=== PATIENT | male | born 2000 | race Hispanic/Latino ===

== ENCOUNTER 2022-12-24 09:41 | Emergency (ER) | payer MEDICAID ==
[~2022-12-24] VITALS: Ht 177.8 cm; Wt 99.8 kg
[2022-12-24 10:00] LABS: HEMATOCRIT 53.1 % (42-54); MEAN CORPUSCULAR HEMOGLOBIN 30.7 pg (27.0-33.0); MEAN CORPUSCULAR HGB CONC 33.1 g/dL (32.0-36.0); MEAN CORPUSCULAR VOLUME 92.7 fL (80-100); RED BLOOD CELL COUNT(AUTO) 5.73 MIL/uL (4.50-6.20); RED CELL DISTRIBUTION WIDTH 12.3 % (11.0-15.5); WHITE BLOOD COUNT (AUTO) 18.6 K/uL (4.8-10.8)
[2022-12-24 10:09] LABS: CREATININE 1.3 mg/dL (0.5-1.5); POTASSIUM 3.4 mmol/L (3.5-5.1)
[2022-12-24 10:15] LABS: ALBUMIN 4.5 g/dL (3.5-5.0); BILIRUBIN,TOTAL 0.6 mg/dL (0.2-1.0); TOTAL PROTEIN, SERUM 8.2 g/dL (6.0-8.3)
[2022-12-24] MEDS ORDERED: ACETAMINOPHEN 500 MG TABLET ONE (10:50)
[2022-12-24] MEDS ORDERED: ACETAMINOPHEN 500 MG TABLET PO ONE (11:00)
[2022-12-24 11:29] VITALS: BP 116/53; PULSE 87; RESP 18; O2SAT 98
== END 2022-12-24 11:53 | disposition home or self-care (01) ==
LOC: EDH 09:41
DX: R56.9 Unspecified convulsions (principal); D72.823 Leukemoid reaction; E87.6 Hypokalemia; R73.9 Hyperglycemia, unspecified
CPT/HCPCS: 36415; 80053; 85027; 93005

== ENCOUNTER 2024-04-11 01:26 | Emergency (ER) | payer SELFPAY ==
[~2024-04-11] VITALS: Ht 182.9 cm; Wt 90.7 kg
[2024-04-11] MEDS: LACTATED RINGERS 1000ML 1,000 ML IV ONE (01:50)
[2024-04-11] MEDS: ondanSETRON 4MG INJ IVP ONE (01:50)
[2024-04-11 01:54] LABS: BASOPHILS # (AUTO) 0.05 K/uL (0.00-0.20); BASOPHILS % (AUTO) 0.3 % (0.0-5.0); HEMATOCRIT 44.9 % (42-54); IMMATURE GRANULOCYTE ABSOLUTE 0.18 K/uL (0-1); LYMPHOCYTES % (AUTO) 4.9 % (21.0-51.0); MEAN CORPUSCULAR HEMOGLOBIN 31.4 pg (27.0-33.0); MEAN CORPUSCULAR HGB CONC 35.6 g/dL (32.0-36.0); MONOCYTES # (AUTO) 1.7 K/uL (0.1-1.0); MONOCYTES % (AUTO) 8.3 % (3.0-13.0); NEUTROPHILS # (AUTO) 17.1 K/uL (1.8-7.7); NEUTROPHILS % (AUTO) 85.6 % (40.0-77.0); PLATELET COUNT (AUTO) 242 K/uL (130-400); RED CELL DISTRIBUTION WIDTH 12.8 % (11.0-15.5)
[2024-04-11 02:02] LABS: CREATININE 1.9 mg/dL (0.5-1.3); POTASSIUM 4.2 mmol/L (3.5-5.1)
[2024-04-11 02:06] LABS: ALBUMIN 4.2 g/dL (3.5-5.0); BILIRUBIN,TOTAL 0.7 mg/dL (0.2-1.0); TOTAL PROTEIN, SERUM 7.5 g/dL (6.0-8.3)
[2024-04-11 02:31] LABS: APPEARANCE,URINE CLEAR (CLEAR); BILIRUBIN,URINE NEGATIVE (NEGATIVE); COLOR,URINE COLORLESS (YELLOW); GLUCOSE, URINE (UA) NEGATIVE (NEGATIVE); KETONES,URINE NEGATIVE (NEGATIVE); LEUKOCYTE ESTERASE ,URINE NEGATIVE Leu/uL (NEGATIVE); NITRATE,URINE NEGATIVE (NEGATIVE); PH,URINE 5.5 (5.0-8.0); PROTEIN,URINE 30 mg/dL (NEGATIVE); UROBILINOGEN,URINE 0.2 mg/dL (0.2-1.0)
[2024-04-11 02:32] LABS: ADD UA MICROSCOPIC YES
[2024-04-11 02:33] LABS: BACTERIA,URINE FEW /HPF (None Seen); MUCUS,URINE RARE LPF (None Seen); SQUAMOUS EPITHELIAL CELL,UR RARE /HPF (0-2)
[2024-04-11 02:39] LABS: AMPHET/METH SCREEN,URINE NEGATIVE (NEGATIVE); BARBITURATE SCREEN, URINE NEGATIVE (NEGATIVE); BENZODIAZEPINES SCREEN,URINE NEGATIVE (NEGATIVE); CANNABINOID SCREEN,URINE POSITIVE (NEGATIVE); COCAINE SCREEN,URINE NEGATIVE (NEGATIVE); OPIATE SCREEN,URINE NEGATIVE (NEGATIVE); PHENCYCLIDINE SCREEN,URINE NEGATIVE (NEGATIVE)
[2024-04-11] MEDS: DICYCLOMINE HCL 10 MG/5 ML ML PO ONE (02:56)
[2024-04-11] MEDS: MAG/ALUM/SIMETH 30 ML UDCUP PO ONE (02:56)
[2024-04-11] MEDS: LIDOCAINE HCL 2% VISCOUS 15 ML UDCUP PO ONE (02:56)
[2024-04-11] MEDS: ketOROlac 30MG VIAL (30MG/ML) IVP ONE (02:57)
[2024-04-11] MEDS ORDERED: ONDA-243 PO (02:58)
--- NOTE | 2024-04-11 02:59 | ERN ---
General Chief Complaint: Abdominal Pain Stated Complaint: C/O ABD PAIN, N X V, BACK PAIN Time Seen by MD: 01:42 History of Present Illness Initial Comments Simon is a very pleasant 23-year-old male with no significant past medical history comes in with increased nausea vomiting and back pain. Patient reports he takes hot showers. Patient reports that he has not been able to keep anything down. Allergies: Coded Allergies: No Known Drug Allergies (Unverified Allergy, Unknown, 12/24/22) Past Medical History Past Medical History: Seizure Medical History Other: HX OF EPILEPSY Past Surgical History: Appendectomy Social History Social History: Lives with family ROS Dictation Constitutional: Negative for fever,chills, and weight loss Eyes: Negative for injury, pain,redness, and discharge ENT: Negative for injury,pain or swelling Cardiovascular: Negative for chest pain, palpitations, and edema Respiratory: Negative for shortness of breath, cough, and wheezing, Abdomen/GI: Positive for nausea and vomiting Back: Negative for injury and pain : Negative for injury, bleeding and discharge MS/Extremity: Negative for injury and deformity Skin: Negative for rash, and discoloration Neuro: Negative for headache, weakness, numbness, tingling, and seizure Psych: Negative for suicide ideation, homicidal ideation, and hallucinations Physical Exam Physical Exam Dictation General: awake, alert, NAD Head/Face: Normocephalic, atraumatic Eyes: PERRL, EOMI, vision at baseline ENT: oral cavity clear, Neck: Trachea midline, supple, no nuchal rigidity Cardiovascular: RRR, normal S1/S2, No MRGs, no JVD Respiratory: CTAB, no respiratory distress, No rales or wheezes Abdomen: Pain with palpation in the epigastric region Skin: Warm, dry, normal turgor, no rash MS/Extremity: Pulses equal, no cyanosis Neuro: COAx4, GCS 15, strength 5/5 Psych: Normal behavior, mood, and affect normal Results Laboratory and Microbiology Lab and Micro Result Laboratory Tests Test 04/11/24 01:40 04/11/24 02:22 White Blood Count 20.0 K/uL (4.8-10.8) H Red Blood Count 5.10 MIL/uL (4.50-6.20) Hemoglobin 16.0 g/dL (14.0-18.0) Hematocrit 44.9 % (42-54) Mean Corpuscular Volume 88.0 fL (80-100) Mean Corpuscular Hemoglobin 31.4 pg (27.0-33.0) Mean Corpuscular Hemoglobin Concent 35.6 g/dL (32.0-36.0) Red Cell Distribution Width 12.8 % (11.0-15.5) Platelet Count 242 K/uL (130-400) Mean Platelet Volume 10.8 fL (7.5-10.5) H Immature Granulocyte % (Auto) 0.9 % (0-1) Neutrophils (%) (Auto) 85.6 % (40.0-77.0) H Lymphocytes (%) (Auto) 4.9 % (21.0-51.0) L Monocytes (%) (Auto) 8.3 % (3.0-13.0) Eosinophils (%) (Auto) 0.0 % (0.0-8.0) Basophils (%) (Auto) 0.3 % (0.0-5.0) Neutrophils # (Auto) 17.1 K/uL (1.8-7.7) H Lymphocytes # (Auto) 1.0 K/uL (1.0-4.8) Monocytes # (Auto) 1.7 K/uL (0.1-1.0) H Eosinophils # (Auto) 0.00 K/uL (0.00-0.70) Basophils # (Auto) 0.05 K/uL (0.00-0.20) Absolute Immature Granulocyte (auto 0.18 K/uL (0-1) Nucleated Red Blood Cells 0.0 % (0.0-0.19) White Cell Morphology Comment See comments Sodium Level 141 mmol/L (136-145) Potassium Level 4.2 mmol/L (3.5-5.1) Chloride Level 105 mmol/L (101-111) Carbon Dioxide Level 27 mmol/L (21-32) Blood Urea Nitrogen 17 mg/dL (7-18) Creatinine 1.9 mg/dL (0.5-1.3) H Glomerular Filtration Rate Calc 51 mL/min (>90) Random Glucose 132 mg/dL (70-105) H Total Calcium 9.3 mg/dL (8.5-10.1) Total Bilirubin 0.7 mg/dL (0.2-1.0) Aspartate Amino Transf (AST/SGOT) 20 U/L (10-37) Alanine Aminotransferase (ALT/SGPT) 30 U/L (12-78) Alkaline Phosphatase 107 U/L (50-136) Total Protein 7.5 g/dL (6.0-8.3) Albumin 4.2 g/dL (3.5-5.0) Lipase 21 U/L (16-77) Urine Color COLORLESS (YELLOW) Urine Appearance CLEAR (CLEAR) Urine pH 5.5 (5.0-8.0) Urine Specific [place] 1.007 (1.001-1.031) Urine Protein 30 mg/dL (NEGATIVE) H Urine Glucose (UA) NEGATIVE mg/dL (NEGATIVE) Urine Ketones NEGATIVE mg/dL (NEGATIVE) Urine Occult Blood +- (TRACE) (NEGATIVE) H Urine Nitrate NEGATIVE (NEGATIVE) Urine Bilirubin NEGATIVE mg/dL (NEGATIVE) Urine Urobilinogen 0.2 mg/dL (0.2-1.0) Urine Leukocyte Esterase NEGATIVE Altaf/uL Urine RBC 2-5 /HPF (0-1) H Urine WBC 2-5 /HPF (0-1) H Urine Squamous Epithelial Cells RARE /HPF (0-2) Urine Bacteria FEW /HPF (None Seen) Urine Opiates Screen NEGATIVE (NEGATIVE) Urine Barbiturates Screen NEGATIVE (NEGATIVE) Urine Phencyclidine Screen NEGATIVE (NEGATIVE) Urine Amphetamines Screen NEGATIVE (NEGATIVE) Urine Benzodiazepines Screen NEGATIVE (NEGATIVE) Urine Cocaine Screen NEGATIVE (NEGATIVE) Urine Marijuana (THC) Screen POSITIVE (NEGATIVE) H MDM Patient was positive for marijuana on urine exam. Patient likely has a cannabinoid hyperemesis. I did explain to the patient that if he stopped using marijuana he would likely improve his nausea vomiting MDM: Differential diagnosis: Cannabinoid hyperemesis Rationale: Tests considered and ordered secondary to shared decision making include: Previous outside records reviewed: Old ER visits. Risk of complication and/or morbidity or mortality of patient management: None Medications-Per medication reconciliation Need for hospitalization: Patient does not meet criteria for hospitalization. Need for emergency major/minor surgery: No There are no social concerns with this patient. Prescription drug management Prescriptions will include symptomatic care Patient's prior external medical records from other ER visits were reviewed by me as indicated. Prior testing and results from previous visits were reviewed. Prior tests were taken into account with medical decision making and resource utilization, independent historian/historians were used to obtain complete medical history. I independently interpreted the test that were performed, results were reviewed by me and considered findings on radiology if ordered. Medical management and examination interpretation discussions were had by me with other qualified healthcare professionals as indicated for the patient's care. ED Course Orders Procedure Category Date Status Time Cbc With Differential LAB 04/11/24 Complete 01:38 Comprehensive LAB 04/11/24 Complete Metabolic Panel 01:38 Lipase LAB 04/11/24 Complete 01:38 Urinalysis Profile LAB 04/11/24 Complete 01:42 Lactated Ringers PHA 04/11/24 In Process 1000ml (Lactated 02:00 Ondansetron 4mg Inj PHA 04/11/24 In Process (Zofran 4mg Inj) 02:00 Drug Screen Urine LAB 04/11/24 Complete 01:53 Mag/Alum/Simeth 30ml PHA 04/11/24 In Process (Maalox Plus 30ml) 03:00 Lidocaine Hcl 2% PHA 04/11/24 Transmitted Viscous (Lidocaine Hcl 03:00 Dicyclomine Hcl PHA 04/11/24 In Process (Bentyl 10mg/5ml 03:00 Ketorolac PHA 04/11/24 In Process Tromethamine 30mg/Ml 03:00 Current Medications Medications (Trade) Dose Ordered Sig/Basia Route PRN Reason Start Time Stop Time Status Last Admin Dose Admin Al Hydroxide/Mg Hydroxide (MAALox PLUS 30ML) 30 ml ONCE ONCE PO 04/11/24 03:00 04/11/24 03:01 Dicyclomine HCl (Bentyl 10mg/5ml Syrup) 10 mg ONCE ONCE PO 04/11/24 03:00 04/11/24 03:01 Ketorolac Tromethamine (toRADol) 30 mg ONCE ONCE IVP 04/11/24 03:00 04/11/24 03:01 Lactated Ringer's 1,000 ml @ 0 mls/hr ONCE ONCE IV 04/11/24 02:00 04/11/24 02:01 04/11/24 01:50 Lidocaine HCl (Lidocaine HCl 2% Viscous) 10 ml ONCE ONCE PO 04/11/24 03:00 04/11/24 03:01 Ondansetron HCl (zoFRAN 4MG INJ) 4 mg ONCE ONCE IVP 04/11/24 02:00 04/11/24 02:01 04/11/24 01:50 Vital Signs Date Time Temp Pulse Resp B/P (MAP) Pulse Ox O2 Delivery O2 Flow Rate FiO2 04/11/24 01:27 98.4 57 20 129/75 100 Room Air DX & DISP Disposition: Discharge Departure Impression: Primary Impression: Cannabinoid hyperemesis syndrome Condition: Stable Scripts Ondansetron (Ondansetron Odt) 4 Mg Tab.rapdis 4 MG PO Q6H PRN for NAUSEA/VOMITING, #30 TAB Prov: JOAQUÍN SEN MD 04/11/24 Additional Instructions: Please stop using marijuana as this is causing him to have nausea and vomiting. Please follow up with your primary care physician for continuance of care in the next 1-7 days Referrals: YUAN TUBBS MD (PCP) JOAQUÍN SEN MD Apr 11, 2024 02:59
[2024-04-11 03:08] VITALS: BP 122/73; PULSE 60; RESP 18; TEMP 98.4; O2SAT 99
== END 2024-04-11 03:09 | disposition home or self-care (01) ==
LOC: EDH 01:26
DX: R11.2 Nausea with vomiting, unspecified (principal); F12.90 Cannabis use, unspecified, uncomplicated; G40.909 Epilepsy, unspecified, not intractable, without status epilepticus; Z90.49 Acquired absence of other specified parts of digestive tract
CPT/HCPCS: 99284; 96374; 96375; 80053; 80305; 83690; 85025; 36415; 81001; J7120; J2405; J1885

== ENCOUNTER 2024-04-28 21:34 | Emergency (ER) | payer SELFPAY ==
[~2024-04-28] VITALS: Ht 182.9 cm; Wt 95.3 kg
[~2024-04-28 21:34] MED LIST: ONDA-243 PO
[2024-04-28] MEDS ORDERED: AMOX500T2 PO (22:20)
[2024-04-28] MEDS ORDERED: KETO10TA2 PO (22:20)
[2024-04-28] MEDS ORDERED: ACET-66 PO (22:20)
[2024-04-28] MEDS ORDERED: IBUP-2070 PO (22:20)
--- NOTE | 2024-04-28 22:24 | ERN ---
ED Note History of Present Illness Stated Complaint: TOOTH PAIN Chief Complaint: Tooth Ache/Pain Time Seen by MD: 21:39 Dictation: 23-YEAR-OLD MALE WHO PRESENTS TO THE ER COMPLAINING OF FRONTAL TOOTH PAIN X2 WEEKS. STATED THAT HE PENDING INSURANCE APPROVAL IN ORDER TO SEE A DENTIST. Allergies: Coded Allergies: No Known Drug Allergies (Unverified Allergy, Unknown, 12/24/22) Home Meds Active Scripts Ondansetron (Ondansetron Odt) 4 Mg Tab.rapdis, 4 MG PO Q6H PRN for NAUSEA/VOM ITING, #30 TAB Prov:JOAQUÍN SEN MD 04/11/24 Past Medical History Past Medical History: Seizure Additional Past Medical Hx: HX OF EPILEPSY Surgical History: Appendectomy Social History: Lives with family Review of System Dictation NEGATIVE EXCEPT PER HPI CONSTITUTIONAL: NEGATIVE FOR FEVER,CHILLS, AND WEIGHT LOSS EYES: NEGATIVE FOR INJURY, PAIN,REDNESS, AND DISCHARGE ENT: NEGATIVE FOR INJURY,PAIN OR SWELLING. TOOTH PAIN CARDIOVASCULAR: DENIES CHEST PAIN, PALPITATIONS, AND EDEMA RESPIRATORY: NEGATIVE FOR SHORTNESS OF BREATH, COUGH, AND WHEEZING, ABDOMEN/GI: NEGATIVE FOR ABDOMINAL PAIN, NAUSEA, VOMITING, DIARRHEA, AND CONSTI PATION BACK: NEGATIVE FOR INJURY AND PAIN : NEGATIVE FOR INJURY, BLEEDING AND DISCHARGE MS/EXTREMITY: NEGATIVE FOR INJURY AND DEFORMITY SKIN: NEGATIVE FOR RASH, AND DISCOLORATION NEURO: NEGATIVE FOR HEADACHE, WEAKNESS, NUMBNESS, TINGLING, AND SEIZURE PSYCH: NEGATIVE FOR SUICIDE IDEATION, HOMICIDAL IDEATION, AND HALLUCINATIONS Initial Vital Sign VS Vital Signs Date Time Temp Pulse Resp B/P (MAP) Pulse Ox O2 Delivery O2 Flow Rate FiO2 04/28/24 21:35 96.8 60 16 124/86 100 Room Air Physical Exam Dictation GENERAL: AWAKE, ALERT, NAD HEAD/FACE: NORMOCEPHALIC, ATRAUMATIC EYES: PERRL, EOMI, VISION AT BASELINE ENT: ORAL CAVITY CLEAR, TMS CLEAR, NO SIGNS OF INFECTION. THERE IS A TENDERNESS IN THE UPPER MAXILLARY AREA NECK: TRACHEA MIDLINE, SUPPLE, NO NUCHAL RIGIDITY CARDIOVASCULAR: RRR, NORMAL S1/S2, NO MRGS, NO JVD RESPIRATORY: CTAB, NO RESPIRATORY DISTRESS, NO RALES OR WHEEZES ABDOMEN: SOFT , NO TENDER SKIN: WARM, DRY, NORMAL TURGOR, NO RASH MS/EXTREMITY: PULSES EQUAL, NO CYANOSIS, NEUROVASCULAR INTACT, FROM NEURO: COAX4, GCS 15, STRENGTH 5/5, CN 2-12 INTACT, NORMAL CEREBELLAR EXAM, NORMAL GAIT, PSYCH: NORMAL BEHAVIOR, MOOD, AND AFFECT NORMAL ED Course ED Course Orders Procedure Category Date Status Time Acetaminophen With PHA 04/28/24 Transmitted Codeine (Tylenol-Code 22:30 Vital Signs Date Time Temp Pulse Resp B/P (MAP) Pulse Ox O2 Delivery O2 Flow Rate FiO2 04/28/24 21:35 96.8 60 16 124/86 100 Room Air Medical Decision Making MDM 23-YEAR-OLD MALE WITH UPPER TOOTH PAIN X2 WEEKS. -TOOTH PAIN PAIN MEDICATION GIVEN TYLENOL 3 PRESCRIPTION FOR PAIN MEDICATION AND ANTIBIOTICS TIMES 10 DAYS GIVEN. RECOMMENDATION TO FOLLOW UP WITH A DENTIST IN THE NEXT 24 HOURS DX & DISP Disposition: Discharge Departure Impression: Primary Impression: Tooth ache Condition: Stable Scripts Acetaminophen (Tylenol) 500 Mg Tab 1 TAB PO Q6HPRN PRN for pain or fever for 15 Days, #20 TAB 0 Refills Prov: JESSICA HARTLEY MD 04/28/24 Ibuprofen (Ibuprofen) 600 Mg Tablet 1 TAB PO TID for pain for 10 Days, #30 TAB 0 Refills with food Prov: JESSICA HARTLEY MD 04/28/24 Amoxicillin (Amoxicillin) 500 Mg Tablet 1 TAB PO TID for 10 Days, #30 TAB 0 Refills Prov: JESSICA HARTLEY MD 04/28/24 Ketorolac Tromethamine (Ketorolac Tromethamine) 10 Mg Tablet 1 TAB PO Q6HPRN PRN for pain for 5 Days, #30 TAB 0 Refills Prov: JESSICA HARTLEY MD 04/28/24 Additional Instructions: RETURN TO ER FOR ANY ACUTE OR WORSENING SYMPTOMS. FOLLOW-UP IN 1-2 DAYS WITH PRIMARY PROVIDER FOR RECHECK OF TODAY'S SYMPTOMS. PATIENT HAS MUST FOLLOW UP WITH DENTIST IN NEXT 24 HOURS. Referrals: YUAN TUBBS MD (PCP) JESSICA HARTLEY MD Apr 28, 2024 22:24
[2024-04-28] MEDS: acetaMINOPHEN WITH coDEINE 1 TAB TAB PO PRN (22:42)
[2024-04-28 22:43] VITALS: BP 126/70; PULSE 63; RESP 16; TEMP 98; O2SAT 99
--- NOTE | 2024-04-28 22:46 | NUR ---
DELAY IN DISCHARGE DUE TO MEDICATION ADMINISTRATION
== END 2024-04-28 22:56 | disposition home or self-care (01) ==
LOC: EDH 21:34
DX: K08.89 Other specified disorders of teeth and supporting structures (principal); G40.909 Epilepsy, unspecified, not intractable, without status epilepticus; Z79.899 Other long term (current) drug therapy; Z90.49 Acquired absence of other specified parts of digestive tract
CPT/HCPCS: 99283